=== PATIENT | female | born 1995 ===

== ENCOUNTER 2020-10-16 13:23 | Emergency (ER) | payer OTHER ==
[2020-10-16] MEDS ORDERED: cefTRIAXone/NS 1 GM/50 ML 1 GM/50 ML BAG IV ONE (13:38)
[2020-10-16] MEDS ORDERED: SODIUM CHLORIDE 0.9% 1000 ML IV SOLN IV ONE (13:38)
[2020-10-16 13:39] VITALS: BP 90/48
[2020-10-16] MEDS ORDERED: ACETAMINOPHEN 500 MG TAB PO ONE (13:39)
--- NOTE | 2020-10-16 13:40 | Emergency Department Report ---
Blank Doc - Documentation Documentation: 25-year-old female that presents with left flank pain, dysuria and urinary jose alejandro quency. Exam: Hypotension, tachycardia and febrile in triage. Positive CVA tenderness to left flank. 1- This is a initial triage assessment/medical screening only. Full assessment and work-up will be completed once the patient is in proper hospital gown, ED bed and in a private room setting. This initial assessment/diagnostic orders/clinical plan/ treatment(s) is/are subject to change based on pt's health status, clinical progression and re-assessment by fellow clinical providers in the ED. Further treatment and workup at subsequent clinical providers discretion. Patient/guardians urged not to elope from ED as their condition may be serious if not clinically assessed and managed. 2-sepsis protocol initiated
[2020-10-16 14:16] LABS: Hematocrit 33.7 % (30.3-42.9); Hemoglobin 11.4 gm/dl (10.1-14.3); Mean Corpuscular HGB Conc 34 % (30-34); Mean Corpuscular Volume 89 fl (79-97); Platelet Count 167 K/mm3 (140-440); Red Blood Count 3.79 M/mm3 (3.65-5.03); Red Cell Distribution Width 13.4 % (13.2-15.2)
[2020-10-16 14:33] LABS: Alanine Aminotransferase 86 units/L (7-56); Blood Urea Nitrogen 9 mg/dL (7-17); Calcium 9.3 mg/dL (8.4-10.2); Hemolysis Index 3
--- NOTE | 2020-10-16 14:53 | XRay Report ---
CHEST 1 VIEW INDICATION / CLINICAL INFORMATION: sepsis. COMPARISON: None available. FINDINGS: SUPPORT DEVICES: None. HEART / MEDIASTINUM: No significant abnormality. LUNGS / PLEURA: No significant pulmonary or pleural abnormality. No pneumothorax. ADDITIONAL FINDINGS: No significant additional findings. IMPRESSION: 1. No acute findings. Signer Name: Delon Samuels MD Signed: 10/16/2020 2:48 PM Workstation Name: [id number] [id number]
[2020-10-16 14:57] LABS: Total Cells Counted 100
[2020-10-16 14:58] LABS: Anisocytosis 1+; Band Neutrophils # (Manual) 0.2 K/mm3; Platelet Estimate Consistent w Auto
[2020-10-16 14:59] LABS: BUN/Creatinine Ratio 13
[2020-10-16 16:40] LABS: Bilirubin,Urine NEG (Negative); Blood,Urine MOD (Negative); Color,Urine Amber (Yellow); Mucus,Urine FEW /HPF
[2020-10-16 16:41] LABS: WBC,Urine > 182.0 /HPF (0.0-6.0)
== END 2020-10-17 07:08 | disposition left against medical advice (07) ==
LOC: ED 13:23
DX: Z00.8 Encounter for other general examination (principal); Z53.21 Procedure and treatment not carried out due to patient leaving prior to being seen by health care provider
CPT/HCPCS: 36415; 71045; 80053; 81001; 82140; 84703; 85007; 85025; 87040